=== PATIENT | female | born 1970 | race African-American/Black ===

== ENCOUNTER 2022-05-26 16:41 | Emergency (ER) | payer MEDICAID ==
[~2022-05-26] VITALS: Ht 162.6 cm; Wt 82.0 kg
[2022-05-26 17:39] LABS: CLARITY URINE CLEAR (CLEAR); COLOR URINE YELLOW (YELLOW); KETONES URINE 1+ (NEGATIVE); LEUKOCYTE ESTERASE URINE TRACE (NEGATIVE); NITRITE URINE NEGATIVE (NEGATIVE); OCCULT BLOOD URINE NEGATIVE (NEGATIVE); PH URINE 5.5 (4.5-8.0); PROTEIN URINE 2+ (NEGATIVE); SPECIFIC GRAVITY URINE 1.026 (1.005-1.030)
[2022-05-26 20:03] LABS: BASOPHILS % 0.4 % (0.0-2.0); EOSINOPHILS % 0.1 % (0.0-5.0); HEMATOCRIT. 27.5 % (36.0-48.0); HEMOGLOBIN. 8.5 g/dL (12.0-16.0); MEAN CORPUSCULAR HEMOGLOBIN 22.9 pg (28.0-32.0); MEAN CORPUSCULAR VOLUME 74.2 fL (81.0-99.0); MEAN PLATELET VOLUME 7.1 fl (7.4-10.4); MONOCYTES % 6.5 % (2.0-8.0); PLATELET 481 x1000/uL (130-400); RED BLOOD CELL COUNT 3.71 mill/uL (4.2-5.4); RED CELL DISTRIBUTION WIDTH 20.1 % (11.6-14.6)
[2022-05-26 20:12] LABS: CHLORIDE 106 mEq/L (98-107)
[2022-05-26 20:14] LABS: PROTHROMBIN TIME 10.9 sec (9.6-11.0)
[2022-05-26] MEDS ORDERED: CEPH500C2 MT (20:44)
[2022-05-26] MEDS ORDERED: CEPHALEXIN 250MG CAPSULE PO NR (20:45)
[2022-05-26 21:00] VITALS: BP 124/80
== END 2022-05-26 21:25 | disposition home or self-care (01) ==
LOC: ER 16:41
DX: N39.0 Urinary tract infection, site not specified (principal); R00.0 Tachycardia, unspecified
CPT/HCPCS: 36415; 70450; 71045; 80053; 81003; 83880; 84484; 85025; 85610; 93005; 99285; Z7610